=== PATIENT | female | born 1985 | race Caucasian/White ===

== ENCOUNTER 2017-06-22 15:09 | Inpatient (IN) | payer OTHER ==
[~2017-06-22] VITALS: Ht 157.5 cm; Wt 45.2 kg
[~2017-06-22 15:09] MED LIST: ATARAX,VISTARIL50 MG PO; CARBIDOPA/LEVOD1 TA1 PO
[2017-06-22 16:00] VITALS: BP 110/75
[2017-06-22] MEDS ORDERED: XANAX2 M1 PO (16:27)
[2017-06-22] MEDS ORDERED: ZUBSOLV 8.6-2.1 EACH PO (16:30)
[2017-06-22 17:36] LABS: BASO # 0.1 10*3/uL (0.0-0.1); BASO % 0.6 % (0.0-1.0); EOS # 0.7 10*3/uL (0.0-0.4); EOS % 7.3 % (1.0-4.0); HEMATOCRIT 36.8 % (37.0-47.0); HEMOGLOBIN 12.3 g/dl (12.0-16.0); LYMPH # 2.9 10*3/uL (1.3-4.4); LYMPH % 30.1 % (27.0-41.0); MEAN CELL VOLUME 87.4 fl (81.0-99.0); MEAN CORPUSCULAR HGB 29.2 pg (27.0-31.0); MEAN CORPUSCULAR HGB CONC 33.4 g/dl (33.0-37.0); MEAN PLATELET VOLUME 9.3 fl (9.6-12.3); MONO # 0.6 10*3/uL (0.1-1.0); MONO % 5.9 % (3.0-9.0); NEUT # 5.5 10*3/uL (2.3-7.9); PLATELET COUNT AUTOMATED 257 10*3/uL (130-400); RED BLOOD COUNT 4.21 10*6/uL (4.10-5.10); RED CELL DISTRI WIDTH 12.7 % (0-14.5); WHITE BLOOD COUNT 9.8 10*3/uL (4.8-10.8)
[2017-06-22 17:47] LABS: URINE AMPHETAMINES < 1000 (1000ng/ml); URINE BARBITURATES < 200 (200ng/ml); URINE BENZODIAZEPINES > 200 (200ng/ml); URINE CANNABINOIDS (THC) < 50 (50ng/ml); URINE COCAINE < 300 (300ng/ml); URINE METHADONE < 300 (300ng/ml); URINE OPIATES < 300 (300ng/ml); URINE PHENCYCLIDINE < 25 (25ng/ml)
[2017-06-22 17:53] LABS: ALBUMIN 4.5 gm/dl (3.1-4.5); ALKALINE PHOSPHATASE 63 U/L (45-117); BUN 12 mg/dl (7-24); CHLORIDE 105 mmol/L (98-107); CREATININE 0.88 mg/dL (0.55-1.02); ETHYL ALCOHOL < 3.0 mg/dl (<3); POTASSIUM 3.6 mmol/L (3.5-5.1); SGOT/AST 21 IU/L (3-35); SGPT/ALT 21 U/L (12-78); SODIUM 139 mmol/L (136-145); TOTAL PROTEIN 8.5 gm/dL (6.4-8.2)
[2017-06-22 18:05] LABS: BILIRUBIN NEGATIVE (NEGATIVE); BLOOD NEGATIVE (NEGATIVE); CLARITY CLEAR (CLEAR); COLOR YELLOW (YELLOW); GLUCOSE NEGATIVE (NEGATIVE); KETONE NEGATIVE (NEGATIVE); LEUKO ESTERASE NEGATIVE (NEGATIVE); NITRITE NEGATIVE (NEGATIVE); PH 7.5 (5.0-9.0); UROBILINOGEN 0.2 E.U./dl (0.2-1.0)
[2017-06-22 18:12] LABS: BACTERIA TRACE; EPITHELIAL CELLS 35-40; WBC 0-2 wbc/hpf (0-5)
[2017-06-22 20:00] VITALS: BP 101/45
[2017-06-23] VITALS: BP 92/50
[2017-06-23 04:00] VITALS: BP 99/60
[2017-06-23 08:00] VITALS: BP 83/45; BP 92/58
[2017-06-23 12:00] VITALS: BP 100/56
[2017-06-23 16:00] VITALS: BP 96/48
[2017-06-23 20:00] VITALS: BP 99/41
[2017-06-24] VITALS: BP 85/44
[2017-06-24 08:00] VITALS: BP 109/67
[2017-06-24 12:00] VITALS: BP 100/50
[2017-06-24 16:00] VITALS: BP 106/55
[2017-06-24 20:00] VITALS: BP 96/40
[2017-06-25] VITALS: BP 90/54
[2017-06-25 06:32] LABS: BASO % 0.6 % (0.0-1.0); EOS # 0.5 10*3/uL (0.0-0.4); EOS % 8.2 % (1.0-4.0); HEMATOCRIT 33.1 % (37.0-47.0); HEMOGLOBIN 10.5 g/dl (12.0-16.0); LYMPH # 2.7 10*3/uL (1.3-4.4); LYMPH % 43.8 % (27.0-41.0); MEAN CELL VOLUME 90.7 fl (81.0-99.0); MEAN CORPUSCULAR HGB 28.8 pg (27.0-31.0); MEAN CORPUSCULAR HGB CONC 31.7 g/dl (33.0-37.0); MEAN PLATELET VOLUME 9.8 fl (9.6-12.3); MONO # 0.5 10*3/uL (0.1-1.0); MONO % 8.3 % (3.0-9.0); NEUT # 2.4 10*3/uL (2.3-7.9); NEUT % 38.9 % (47.0-73.0); PLATELET COUNT AUTOMATED 217 10*3/uL (130-400); RED BLOOD COUNT 3.65 10*6/uL (4.10-5.10); RED CELL DISTRI WIDTH 12.7 % (0-14.5); WHITE BLOOD COUNT 6.2 10*3/uL (4.8-10.8)
[2017-06-25 07:03] LABS: CREATININE 0.75 mg/dL (0.55-1.02)
[2017-06-25 08:00] VITALS: BP 98/53
[2017-06-25] MEDS ORDERED: CHLORDIAZEPOXID25 M1 PO (08:15)
[2017-06-25] MEDS ORDERED: ATARAX,VISTARIL50 MG PO (08:15)
[2017-06-25] MEDS ORDERED: ROPINIROLE HYD0.5 MG PO (08:15)
== END 2017-06-25 09:30 | disposition home or self-care (01) | DRG 897 ==
LOC: 4E 15:09
PROVIDERS: Internal Medicine; Student in an Organized Health Care Education/Training Program
DX: F13.239 Sedative, hypnotic or anxiolytic dependence with withdrawal, unspecified (principal); F41.9 Anxiety disorder, unspecified; F19.230 Other psychoactive substance dependence with withdrawal, uncomplicated; Z71.6 Tobacco abuse counseling; Z72.0 Tobacco use; Z82.49 Family history of ischemic heart disease and other diseases of the circulatory system; Z79.899 Other long term (current) drug therapy